=== PATIENT | female | born 1965 | race African-American/Black ===

== ENCOUNTER 2018-03-20 10:36 | Day surgery (SDC) | payer BC ==
[2018-03-20] VITALS (9 sets, daily range): BP systolic 109–120; BP diastolic 47–88
[~2018-03-20] VITALS: Ht 165.1 cm; Wt 67.1 kg
[2018-03-20] MEDS ORDERED: Avastin 10mg Inj IVITRE ONE (11:00)
[2018-03-20] MEDS ORDERED: Cyclopentolate 1% Opth Sol 2ml ONE (11:27)
[2018-03-20] MEDS ORDERED: Phenylephrine 2.5% Op 2ml Soln ONE (11:28)
[2018-03-20] MEDS: Phenylephrine 2.5% Op 2ml Soln LEFT EYE SCH ×3 (11:44→12:11)
[2018-03-20] MEDS: Cyclopentolate 1% Opth Sol 2ml LEFT EYE SCH ×3 (11:44→12:11)
[2018-03-20] MEDS ORDERED: NKM (12:25)
--- NOTE | 2018-03-20 14:08 | Pre-Procedure Note/Attestation ---
Pre-Procedure Note/Attestation Complete Prior to Procedure Planned Procedure: left Procedure Narrative: ppv/el/afx/gas os Indications for Procedure Pre-Operative Diagnosis: retinal detachment os Attestation I attest that I discussed the nature of the procedure; its benefits; risks and complications; and alternatives (and the risks and benefits of such alternatives ), prior to the procedure, with the patient (or the patient's legal telesales representative). I attest that, if there was a reasonable possibility of needing a blood transfusion, the patient (or the patient's legal telesales representative) was given the [facility] standardized written summary, pursuant to the [place] Blood Safety Act ([place] Health and Safety Code # 1645, as amended). I attest that I re-evaluated the patient just prior to the surgery and that there has been no change in the patient's H&P, except as documented below: Eloy Grijalva MD Mar 20, 2018 14:08
[2018-03-20] MEDS ORDERED: Lidocaine 1% MPF 10mg/ml 5ml ONE (15:31)
[2018-03-20] MEDS ORDERED: fentaNYL 100 mcg/2 mL IV ONE (15:31)
[2018-03-20] MEDS ORDERED: Midazolam 2mg/2ml Inj ONE (15:31)
[2018-03-20] MEDS ORDERED: DiphenhydrAMINE 50mg/ml Inj ONE (15:31)
[2018-03-20] MEDS ORDERED: Propofol 200mg/20ml IV ONE (15:31)
[2018-03-20] MEDS ORDERED: Maxitrol Opth Oint 3.5gm ONE (15:40)
[2018-03-20] MEDS ORDERED: EPINEPHrine 1mg/1ml Amp ONE (15:40)
[2018-03-20] MEDS ORDERED: Lidocaine 2% MPF 5ml Vial INJ ONE (15:40)
[2018-03-20] MEDS ORDERED: Goniotaire 2.5% Opth Soln - 15ml ONE (15:40)
[2018-03-20] MEDS ORDERED: Pred Forte 1% Opth Susp 1ml ONE (15:40)
[2018-03-20] MEDS ORDERED: BSS 500ml btl ONE (15:41)
[2018-03-20] MEDS ORDERED: Tetracaine 0.5% Opth 4ml Soln ONE ×2 (15:41→16:18)
[2018-03-20] MEDS ORDERED: BSS 15ml BTL ONE (15:41)
[2018-03-20] MEDS ORDERED: Bupivacaine 0.75% 30ml vial INJ ONE (15:41)
[2018-03-20] MEDS ORDERED: Dexamethasone 4mg/ml vial ONE (15:41)
[2018-03-20] MEDS ORDERED: Kenalog-40 1ml Vial ONE (15:42)
[2018-03-20] MEDS ORDERED: Kenalog-10 5ml Inj ONE (15:42)
[2018-03-20] MEDS ORDERED: Povidone-Iodine 5% opth solution ONE (15:42)
[2018-03-20] MEDS ORDERED: LR 1000ml 1,000 ML IVLG SCH (16:12)
--- NOTE | 2018-03-20 16:12 | Anethesia Preoperative Eval ---
Anesthesia Pre-op PMH/ROS General Date of Evaluation: Mar 20, 2018 Anesthesiologist: Leon ASA Score: ASA 2 Mallampati Score Class I : Soft palate, uvula, fauces, pillars visible Class II: Soft palate, uvula, fauces visible Class III: Soft palate, base of uvula visible Class IV: Only hard plate visible Mallampati Classification: Class II Surgeon: Rudi Diagnosis: Left eye retinal detachment Surgical Procedure: Left eye vitrectomy Anesthesia History: none Family History: no anesthesia problems Allergies: Coded Allergies: No Known Allergies (Unverified , 03/20/18) Medications: see eMAR Patient NPO?: Yes NPO Date: Mar 19, 2018 NPO Time: 22:00 Past Medical History Cardiovascular: Denies: HTN, CAD, NM, valve dz, arrhythmia, other Pulmonary: Denies: asthma, COPD, SG, other Gastrointestinal/Genitourinary: Reports: GERD; Denies: CRI, ESRD, other Neurologic/Psychiatric: Denies: dementia, CVA, depression/anxiety, TIA, other Endocrine: Denies: DM, hypothyroidism, steroids, other HEENT: Reports: other - Left retinal detachment; Denies: cataract (L), cataract (R), glaucoma, MANZANITA (L), MANZANITA (R) Hematology/Immune: Denies: anemia, DVT, bleeding disorder, other Musculoskeletal/Integumentary: Denies: OA, RA, DJD, DDD, edema, other PSxH Narrative: Left breast sx Anesthesia Pre-op Phys. Exam Physician Exam Last Vital Signs Date Time Temp Pulse Resp B/P (MAP) Pulse Ox O2 Delivery O2 Flow Rate FiO2 03/20/18 11:48 Room Air 03/20/18 11:46 98.3 88 18 117/88 98 Constitutional: NAD Cardiovascular: RRR Respiratory: CTA Airway Exam Mallampati Score: Class II MO: full ROM: full Anesthesia Pre-op A/P Labs see chart Studies Pre-op Studies: EKG - sr Risk Assessment & Plan Assessment: ASA II Plan: MAC Status Change Before Surgery: No Pre-Antibiotics Drug: N/A Zahra Cortez MD Mar 20, 2018 16:12
[2018-03-20] MEDS ORDERED: Midazolam 2mg/2ml Inj IVP PRN (16:15)
[2018-03-20] MEDS ORDERED: DiphenhydrAMINE 50mg/ml Inj IVP PRN (16:15)
[2018-03-20] MEDS ORDERED: fentaNYL 100 mcg/2 mL IV PRN (16:15)
--- NOTE | 2018-03-20 17:24 | Operative Note - PDOC ---
Operative Note Operative Note Chief Complaint: va loss os Pre-op Diagnosis: retinal detachment os Procedure: ppv/el/afx/af6 20% os Post-op Diagnosis: same Post-op Diagnosis: same as pre-op Operative Findings: consistent w/pre-op dx studies Surgeon: mirian Anesthesia: local, MAC Specimen: none Complications: none Condition: stable Estimated Blood Loss: none Drains: none Implant(s) used?: No Indications for Procedure rd Description of Procedure retina reattached nicely. iop 15 palp at end. Eloy Grijalva MD Mar 20, 2018 17:24
--- NOTE | 2018-03-20 17:26 | Immediate Post-Op Evaluation ---
Immediate Post-Op Evalulation Immediate Post-Op Evalulation Procedure: Left eye vitrectomy Date of Evaluation: Mar 20, 2018 Time of Evaluation: 17:26 IV Fluids: 400 Blood Products: 0 Estimated Blood Loss: min Urinary Output: 0 Blood Pressure Systolic: 115 Blood Pressure Diastolic: 57 Pulse Rate: 79 Respiratory Rate: 17 O2 Sat by Pulse Oximetry: 96 Temperature (Fahrenheit): 97.2 Pain Score (1-10): 0 Nausea: No Vomiting: No Complications 0 Patient Status: awake, reacts, patent, none Hydration Status: adequate Drug: N/A Zahra Cortez MD Mar 20, 2018 17:26
--- NOTE | 2018-03-20 17:26 | 48 Hour Post Anesthesia Eval ---
Post Anesthesia Evaluation Procedure: Left eye vitrectomy Date of Evaluation: Mar 20, 2018 Airway: patent Nausea: No Vomiting: No Pain Intensity: 0 Hydration Status: adequate Cardiopulmonary Status: at baseline Mental Status/LOC: patient returned to baseline Post-Anesthesia Complications: 0 Follow-up care needed: ready to discharge Zahra Cortez MD Mar 20, 2018 17:26
[2018-03-20] MEDS ORDERED: acetaZOLAMIDE 500mg Sequel ORAL SCH (17:30)
[2018-03-20] MEDS ORDERED: Norco 5mg/325mg tab ORAL PRN (23:01)
--- NOTE | 2018-03-21 17:44 | Cardiology Report ---
APPROVED REPORT EKG Measurement Heart [id number] Normal sinus rhythm Nonspecific T wave abnormality Abnormal ECG
--- NOTE | 2018-03-21 21:30 | Operative Note - Dictated ---
DATE OF OPERATION: 03/20/2018 PREOPERATIVE DIAGNOSIS: Retinal detachment, left eye. POSTOPERATIVE DIAGNOSIS: Retinal detachment, left eye. PROCEDURE: Pars plana vitrectomy and endolaser air-fluid exchange SF6 gas, left eye. PRIMARY SURGEON: Eloy Grijalva M.D. CORE COMPOSER MACHINE TENDER: None. ANESTHESIA: Monitored anesthesia care with retrobulbar injection. ESTIMATED BLOOD LOSS: None. COMPLICATIONS: None. INDICATIONS: The patient had retinal detachment in the left eye. I reviewed the benefits, alternatives, and risks in great detail prior to the surgery and confirmed informed consent. I have repeated the consent process paperwork prior to the surgery as well. I told the patient that the visual prognosis was guarded and with successful retinal reattachment and may be some element of vision loss. DESCRIPTION OF PROCEDURE: The patient was brought to the operating theater and identified. The left eye then received a retrobulbar block using the usual mixture of Marcaine and lidocaine under intravenous sedation with a retrobulbar needle. The left eye was prepped and draped in the usual sterile fashion and a lid speculum was placed. Surgical pause was confirmed. Under the operating microscope, a 23-gauge valved trocar/cannula was inserted in the inferotemporal quadrant at a distance of 3.5 mm posterior to the limbus using conjunctival displacement in an oblique incision pattern. The infusion line was flushed and attached and then observed to be in the posterior segment before finally being turned on. The superotemporal and superonasal cannulas were placed in a similar fashion. The [employer] visualization system was brought into view and a light pattern vitrectomy cutter was placed into the eye. Vitrectomy ensued in a systematic fashion starting with removal of core vitreous followed by peripheral vitreous shaving. At this point, the macula sparing retinal detachment could be seen emanating from 12 o'clock to 2:30, and there was a prominent retinal tear in the mid periphery. extended to the superotemporal arcade, but not into the macula. Peripheral vitreous shaving was performed with the aid of scleral depression provided by my high school assistant principal. Next, diathermy was used to aung the break and to make a small retinotomy in the superotemporal mid periphery. Endo drainage was then performed during air-fluid exchange with a soft-tip extrusion cannula. The retina reattached nicely. Laser was given to the retinotomy as well as to the retinal tear and then in a 360-degree fashion with the vitreous base. Additional air-fluid exchange was performed and the retina was confirmed to be completely reattached. Next, the instruments were removed from the eye. The superonasal cannula was removed. The conjunctiva was opened and 7-0 Vicryl was used to close with sclerotomy and 6-0 plain gut in a buried knot fashion used to close the overlying conjunctiva. I then diluted 20% SF6 gas myself and I injected the diluted mixture through the infusion line and allowed it to bent through the supratemporal cannula. I then removed the remaining cannulas and there was no evidence of wound leak. The eye maintained a palpated pressure of approximately 16. Subconjunctival vancomycin and dexamethasone were then injected. The instruments were all removed from the eye as well as lid speculum. The periocular area was cleaned with a wet and dry gauze. Atropine drop and Maxitrol ointment were placed on the ocular surface and a patch and shield were fixed over the closed lids with tape. The patient was taken to the recovery area in good spirits and then no pain. She was placed in the facedown position and positioning directions were reviewed. Postoperative instructions and gas precautions were clearly reviewed as well. Followup was confirmed for the following day. There were no complications during this case and I performed the entire surgery. Eloy Grijalva M.D. DR: MARTIR JOB#: [id number] CC:
== END 2018-03-20 18:45 | disposition home or self-care (01) ==
LOC: SUR 10:36
DX: H33.22 Serous retinal detachment, left eye (principal); K21.9 Gastro-esophageal reflux disease without esophagitis
CPT/HCPCS: 67039; 93005; J0171; J1100; J1200; J2250; J2704; J3010; J3370; J3470; J3490; J9035; 94003; 94150